=== PATIENT | female | born 1955 | race Hispanic/Latino ===

== ENCOUNTER 2018-08-24 05:48 | Day surgery (SDC) | payer BC ==
[2018-08-22 11:23] VITALS: BP 116/61
[2018-08-22 11:38] LABS: BASOPHILS % (AUTO) 1.1 % (0.0-5.0); EOSINOPHILS % (AUTO) 4.1 % (0.0-8.0); HEMATOCRIT 37.2 % (36-48); LYMPHOCYTES % (AUTO) 33.9 % (21.0-51.0); MEAN CORPUSCULAR HEMOGLOBIN 30.9 pg (27.0-33.0); MEAN CORPUSCULAR HGB CONC 33.9 g/dL (32.0-36.0); MEAN CORPUSCULAR VOLUME 91.2 fL (79-99); MONOCYTES % (AUTO) 8.8 % (3.0-13.0); NEUTROPHILS % (AUTO) 52.1 % (40.0-77.0); NUCLEATED RED BLOOD CELLS 0.1 % (0.0-0.19); PLATELET COUNT (AUTO) 483 K/uL (130-400); RED BLOOD CELL COUNT(AUTO) 4.08 MIL/uL (4.00-5.50); WHITE BLOOD COUNT (AUTO) 6.9 K/uL (4.8-10.8)
[2018-08-22 11:41] LABS: APPEARANCE,URINE Clear (CLEAR); BILIRUBIN,URINE Negative (NEGATIVE); COLOR,URINE Dark Yellow (YELLOW); GLUCOSE, URINE (UA) Negative (NEGATIVE); KETONES,URINE Negative (NEGATIVE); LEUKOCYTE ESTERASE ,URINE Trace (NEGATIVE); NITRATE,URINE Negative (NEGATIVE); OCCULT BLOOD,URINE Negative (NEGATIVE); PROTEIN,URINE Negative (NEGATIVE)
[2018-08-22 11:50] LABS: INR 1.04 (0.85-1.15); PARTIAL THROMBOPLASTIN TIME 30.3 SEC (26.3-35.5); PROTHROMBIN TIME 10.9 SEC (9.6-11.6)
[2018-08-22 11:53] LABS: POTASSIUM 4.1 mmol/L (3.5-5.1)
[2018-08-22 12:14] LABS: BACTERIA,URINE Rare /HPF (None Seen); MUCUS,URINE Few LPF (None Seen); RBC,URINE None Seen /HPF (0-1); SQUAMOUS EPITHELIAL CELL,UR Few /HPF (0-2); WBC,URINE 0-1 /HPF (0-1)
[2018-08-24] VITALS (10 sets, daily range): BP systolic 105–130; BP diastolic 60–69
[~2018-08-24] VITALS: Ht 162.6 cm; Wt 116.0 kg
[~2018-08-24 05:48] MED LIST: ASPI-1181 PO; CYAN-35 PO; FOLI1TAB15 PO; INSU100V12 SQ; LEVO125T95 PO; METO-391 PO; SIMV20TA6 PO; SITA1TAB2 PO
[2018-08-24] MEDS ORDERED: SODIUM CHLORIDE 0.9% 1000ML 1,000 ML IV ONE (06:20)
[2018-08-24] MEDS ORDERED: PREM125 PO (07:00)
[2018-08-24] MEDS ORDERED: PANT40TA PO (07:00)
[2018-08-24] MEDS ORDERED: RANO500T3 PO (07:00)
[2018-08-24] MEDS ORDERED: LIDOCAINE HCL-MPF 2% 5ML VIAL ONE (07:10)
[2018-08-24] MEDS ORDERED: IOHEXOL 350 MG/ML 100ML INFUS..BTL IV ONE (07:11)
[2018-08-24] MEDS ORDERED: IOHEXOL-350 50ML VIAL IV ONE (07:11)
[2018-08-24] MEDS ORDERED: HEPARIN SODIUM 1000UNIT/ML 10ML VIAL ONE (07:12)
[2018-08-24] MEDS ORDERED: DEXTROSE 50%-WATER 50 ML DISP.SYRIN IV PRN (08:00)
[2018-08-24] MEDS ORDERED: GLUCAGON 1MG KIT 1 MG ML IM PRN (08:00)
== END 2018-08-24 14:23 | disposition home or self-care (01) ==
LOC: DAH 05:48
PROVIDERS: ATTEND Internal Medicine Cardiovascular Disease
DX: I25.118 Atherosclerotic heart disease of native coronary artery with other forms of angina pectoris (principal); E11.9 Type 2 diabetes mellitus without complications; E78.5 Hyperlipidemia, unspecified; E03.9 Hypothyroidism, unspecified; E66.9 Obesity, unspecified; Z79.4 Long term (current) use of insulin; Z79.84 Long term (current) use of oral hypoglycemic drugs; Z79.899 Other long term (current) drug therapy; Z90.49 Acquired absence of other specified parts of digestive tract; Z98.890 Other specified postprocedural states; Z90.710 Acquired absence of both cervix and uterus; Z88.8 Allergy status to other drugs, medicaments and biological substances; Z82.49 Family history of ischemic heart disease and other diseases of the circulatory system
CPT/HCPCS: 36415; 71045; 80048; 81001; 82948 ×3; 85025; 85610; 85730; 93005; 93458; A4606; C1894; J1644; J3490; J7030; Q9965; Q9967 ×2

== ENCOUNTER → 2018-10-12 | Outpatient (CLI) | payer BC ==
[~2018-10-12] MED LIST changes: +ERGO2000 PO; +OZEMPIC INJ; +PANT40TA PO; +PREM125 PO; +RANO500T3 PO
== END | disposition home or self-care (01) ==
LOC: RAH 10:10
PROVIDERS: ATTEND Internal Medicine Nephrology
DX: Z12.31 Encounter for screening mammogram for malignant neoplasm of breast (principal); R19.7 Diarrhea, unspecified
CPT/HCPCS: 36415; 77067; 82656; 87507

== ENCOUNTER 2018-10-24 08:34 | Day surgery (SDC) | payer BC ==
[~2018-10-24] VITALS: Ht 162.6 cm; Wt 112.7 kg
[~2018-10-24 08:34] MED LIST changes: +SODIUM CHLORIDE 0.9% 1000ML 1,000 ML IV ONE
[2018-10-24 10:15] VITALS: BP 112/58
[2018-10-24] MEDS ORDERED: PROPOFOL 10 MG/ML 20ML VIAL IV ONE (11:29)
[2018-10-24] MEDS ORDERED: LIDOCAINE HCL 2% 20ML ONE (11:29)
[2018-10-24 11:37] VITALS: BP 94/76
[2018-10-24 11:42] VITALS: BP 118/66
[2018-10-24 11:47] VITALS: BP 115/68
== END 2018-10-24 12:05 | disposition home or self-care (01) ==
LOC: ENDO 08:34 → DAH 08:34 → ENDO 12:05
PROVIDERS: ATTEND Internal Medicine
DX: K44.9 Diaphragmatic hernia without obstruction or gangrene (principal); K31.89 Other diseases of stomach and duodenum; E78.5 Hyperlipidemia, unspecified; E03.9 Hypothyroidism, unspecified; E11.9 Type 2 diabetes mellitus without complications; Z79.4 Long term (current) use of insulin; Z79.899 Other long term (current) drug therapy; Z90.710 Acquired absence of both cervix and uterus; Z98.890 Other specified postprocedural states; Z68.41 Body mass index [BMI] 40.0-44.9, adult; E03.2 Hypothyroidism due to medicaments and other exogenous substances; I25.10 Atherosclerotic heart disease of native coronary artery without angina pectoris
CPT/HCPCS: 43239; 82948 ×2; A4606; J2704; J3490; J7030

== ENCOUNTER → 2018-11-03 | Outpatient (CLI) | payer BC ==
[~2018-11-03] MED LIST changes: -SODIUM CHLORIDE 0.9% 1000ML 1,000 ML IV ONE
== END | disposition home or self-care (01) ==
LOC: RAH 07:49
PROVIDERS: ATTEND Internal Medicine
DX: R10.12 Left upper quadrant pain (principal); R14.0 Abdominal distension (gaseous); K44.9 Diaphragmatic hernia without obstruction or gangrene; K59.00 Constipation, unspecified
CPT/HCPCS: 78264; A9541

== ENCOUNTER → 2019-01-14 | Outpatient (CLI) | payer BC ==
[2019-01-14 10:13] LABS: BASOPHILS % (AUTO) 0.1 % (0.0-5.0); EOSINOPHILS % (AUTO) 3.7 % (0.0-8.0); HEMATOCRIT 38.3 % (36-48); LYMPHOCYTES % (AUTO) 40.8 % (21.0-51.0); MEAN CORPUSCULAR HEMOGLOBIN 30.2 pg (27.0-33.0); MEAN CORPUSCULAR HGB CONC 33.2 g/dL (32.0-36.0); MEAN CORPUSCULAR VOLUME 91.1 fL (79-99); MONOCYTES % (AUTO) 7.8 % (3.0-13.0); NEUTROPHILS % (AUTO) 47.6 % (40.0-77.0); PLATELET COUNT (AUTO) 471 K/uL (130-400); RED BLOOD CELL COUNT(AUTO) 4.21 MIL/uL (4.00-5.50); RED CELL DISTRIBUTION WIDTH 14.1 % (11.0-15.5); WHITE BLOOD COUNT (AUTO) 8.1 K/uL (4.8-10.8)
[2019-01-14 10:33] LABS: ALBUMIN 3.2 g/dL (3.5-5.0); BILIRUBIN,TOTAL 0.3 mg/dL (0.2-1.0); CREATININE 1.1 mg/dL (0.5-1.5); POTASSIUM 4.2 mmol/L (3.5-5.1); TOTAL PROTEIN, SERUM 7.5 g/dL (6.0-8.3)
== END | disposition home or self-care (01) ==
LOC: LAB 09:30
PROVIDERS: ATTEND Internal Medicine Gastroenterology
DX: R10.12 Left upper quadrant pain (principal); R11.0 Nausea
CPT/HCPCS: 36415; 80053; 82150; 83690; 85025

== ENCOUNTER → 2019-01-24 | Outpatient (CLI) | payer BC ==
[~2019-01-24] MED LIST changes: +IOHEXOL-350 75 ML VIAL IV ONE
== END | disposition home or self-care (01) ==
LOC: RAH 10:03
PROVIDERS: ATTEND Internal Medicine Gastroenterology
DX: R10.12 Left upper quadrant pain (principal); R11.0 Nausea
CPT/HCPCS: 74170; Q9967

== ENCOUNTER 2023-03-15 05:50 | Observation (INO) | payer BC, MEDICARE ==
[2023-03-13 11:37] LABS: APPEARANCE,URINE CLEAR (CLEAR); BILIRUBIN,URINE NEGATIVE (NEGATIVE); COLOR,URINE LIGHT-YELLOW (YELLOW); GLUCOSE, URINE (UA) NEGATIVE (NEGATIVE); KETONES,URINE NEGATIVE (NEGATIVE); LEUKOCYTE ESTERASE ,URINE NEGATIVE Leu/uL (NEGATIVE); NITRATE,URINE NEGATIVE (NEGATIVE); OCCULT BLOOD,URINE NEGATIVE (NEGATIVE); PH,URINE 5.5 (5.0-8.0); PROTEIN,URINE NEGATIVE (NEGATIVE); UROBILINOGEN,URINE 0.2 mg/dL (0.2-1.0)
[2023-03-13 11:50] LABS: ALBUMIN 3.6 g/dL (3.5-5.0); CRP QUANTITATIVE < 2.00 mg/L (0.00-9.0)
[2023-03-13 11:51] LABS: INR 1.02 (0.85-1.15); PROTHROMBIN TIME 11.1 SEC (9.6-11.6)
[2023-03-13 11:52] LABS: PARTIAL THROMBOPLASTIN TIME 31.3 SEC (26.3-35.5)
[2023-03-13 13:02] VITALS: BP 123/69
[~2023-03-15] VITALS: Ht 162.6 cm; Wt 102.0 kg
[2023-03-15] VITALS (27 sets, daily range): BP systolic 116–151; BP diastolic 51–78
[~2023-03-15 05:50] MED LIST changes: +AMLO5TAB4 PO; -ASPI-1181 PO; +ASPI-1443 PO; +INSU100I35 SQ; -INSU100V12 SQ; -IOHEXOL-350 75 ML VIAL IV ONE; +MAGN100T5 PO; +NITR0.4T50 SL; +NITR1PAT68 TD; -OZEMPIC INJ; +PYRI-12 PO; -RANO500T3 PO; +SEMA7TAB2 PO; +SIMV-43 PO; -SIMV20TA6 PO; -SITA1TAB2 PO
[2023-03-15] MEDS ORDERED: CEFAZOLIN SODIUM 1 GM VIAL IVPB PRN (06:00)
[2023-03-15] MEDS ORDERED: 0.9%NACL 1000ML 1,000 ML IV ONE (06:24)
[2023-03-15] MEDS ORDERED: KETOROLAC 30MG VIAL (30MG/ML) ONE (06:37)
[2023-03-15] MEDS ORDERED: BUPIVACAINE/PF 0.5% 30ML VIAL ONE (06:38)
[2023-03-15] MEDS ORDERED: SUCCINYLCHOLINE 200MG/10ML SYR ONE (07:04)
[2023-03-15] MEDS ORDERED: LIDOCAINE PF 100MG/5ML (2%) SYRINGE 5ML ONE (07:04)
[2023-03-15] MEDS ORDERED: PROPOFOL 10 MG/ML 20ML VIAL IV ONE (07:04)
[2023-03-15] MEDS ORDERED: ROCURONIUM 10MG/1ML SYR 10 MG/ML ML ONE (07:05)
[2023-03-15] MEDS ORDERED: FENTANYL CITRATE PF 50 MCG/1 ML 2ML VIAL ONE ×2 (07:05→09:23)
[2023-03-15] MEDS ORDERED: MIDAZOLAM HCL 1 MG/ML 2ML VIAL ONE (07:05)
[2023-03-15] MEDS ORDERED: TRANEXAMIC ACID 1000MG/10ML ONE (07:26)
[2023-03-15] MEDS ORDERED: TRANEXAMIC ACID 1000MG/10ML IV ONE (08:42)
[2023-03-15] MEDS ORDERED: NEOSTIGMINE 5MG/5ML SYR IV ONE (08:56)
[2023-03-15] MEDS ORDERED: GLYCOPYRROLATE 1 MG/5 ML SYRINGE ONE (08:56)
[2023-03-15] MEDS ORDERED: ONDANSETRON 4MG INJ IVP PRN (09:30)
[2023-03-15] MEDS ORDERED: POTASSIUM CHLORIDE 10% ELIXIR 20 MEQ/15 ML UDCUP PO PRN (09:30)
[2023-03-15] MEDS ORDERED: FERROUS FUMARATE 324 MG TABLET PO PRN (09:30)
[2023-03-15] MEDS ORDERED: CALCIUM CARB 500MG PO PRN (09:30)
[2023-03-15] MEDS ORDERED: DiphenhydrAMINE HCL 50 MG/ML VIAL IVP PRN (09:30)
[2023-03-15] MEDS ORDERED: KETOROLAC 15MG/ML VIAL (15MG/ML) IV PRN (09:30)
[2023-03-15] MEDS ORDERED: POTASSIUM CHLORIDE 20MEQ/100ML 100 ML IV PRN (09:30)
[2023-03-15] MEDS ORDERED: KCL 20 MEQ ERTAB PO PRN (09:30)
[2023-03-15] MEDS ORDERED: MEPERIDINE-PF 25 MG/ML SYG ONE (09:52)
[2023-03-15] MEDS ORDERED: ONDANSETRON 4MG INJ ONE (09:57)
[2023-03-15] MEDS ORDERED: METOCLOPRAMIDE 10 MG/2 ML VIAL ONE (09:59)
[2023-03-15] MEDS: 0.9%NACL 1000ML 1,000 ML IV SCH ×2 (11:13→16:07)
[2023-03-15] MEDS: ACETAMINOPHEN 500 MG TABLET PO SCH ×3 (11:13→21:21)
[2023-03-15] MEDS: TRAMADOL HCL 50 MG TABLET PO PRN ×2 (11:13→19:12)
[2023-03-15] MEDS: GABAPENTIN 100 MG CAPSULE PO SCH ×2 (14:00→19:46)
[2023-03-15] MEDS: CEFAZOLIN SODIUM 2 GM VIAL IVPB SCH ×2 (16:06→21:19)
[2023-03-15] MEDS: KETOROLAC 15MG/ML VIAL (15MG/ML) IV PRN (16:12)
[2023-03-15] MEDS: DOCUSATE SODIUM 100 MG CAP PO SCH (19:46)
[2023-03-15] MEDS: CYCLOBENZAPRINE HCL 10 MG TABLET PO PRN (21:19)
[2023-03-16] MEDS: ACETAMINOPHEN 500 MG TABLET PO SCH ×4 (03:27→20:05)
[2023-03-16] MEDS: KETOROLAC 15MG/ML VIAL (15MG/ML) IV PRN ×3 (03:27→21:44)
[2023-03-16 03:31] VITALS: BP 123/64
[2023-03-16 05:09] LABS: HEMATOCRIT 33.7 % (36-48); MEAN CORPUSCULAR HEMOGLOBIN 31.1 pg (27.0-33.0); MEAN CORPUSCULAR HGB CONC 33.5 g/dL (32.0-36.0); MEAN CORPUSCULAR VOLUME 92.8 fL (79-99); RED BLOOD CELL COUNT(AUTO) 3.63 MIL/uL (4.00-5.50); RED CELL DISTRIBUTION WIDTH 14.7 % (11.0-15.5); WHITE BLOOD COUNT (AUTO) 10.7 K/uL (4.8-10.8)
[2023-03-16 05:14] LABS: CREATININE 1.1 mg/dL (0.5-1.5); POTASSIUM 3.9 mmol/L (3.5-5.1)
[2023-03-16] MEDS: 0.9%NACL 1000ML 1,000 ML IV SCH (05:15)
[2023-03-16 08:00] VITALS: BP 130/69
[2023-03-16] MEDS ORDERED: LIDOCAINE HCL-MPF 2% 10ML AMP IJ ONE (08:29)
[2023-03-16] MEDS ORDERED: ROPIVACAINE 0.5% 5MG/ML 30ML IJ ONE (08:29)
[2023-03-16] MEDS: GABAPENTIN 100 MG CAPSULE PO SCH ×3 (09:05→20:04)
[2023-03-16] MEDS: DOCUSATE SODIUM 100 MG CAP PO SCH ×2 (09:05→20:04)
[2023-03-16] MEDS: ASPIRIN 325MG TAB PO SCH (09:07)
[2023-03-16] MEDS: POLYETHYLENE GLYCOL 3350 17 GM POWD.PACK PO SCH (09:07)
[2023-03-16 11:49] VITALS: BP 124/53
[2023-03-16] MEDS: CYCLOBENZAPRINE HCL 10 MG TABLET PO PRN ×2 (12:41→21:49)
[2023-03-16] MEDS: TRAMADOL HCL 50 MG TABLET PO PRN (12:41)
[2023-03-16 16:00] VITALS: BP 142/74
[2023-03-16 19:58] VITALS: BP 141/70
[2023-03-16 23:26] VITALS: BP 129/49
[2023-03-17] MEDS: ACETAMINOPHEN 500 MG TABLET PO SCH ×2 (02:34→07:20)
[2023-03-17 03:52] VITALS: BP 132/72
[2023-03-17] MEDS: GABAPENTIN 100 MG CAPSULE PO SCH (07:18)
[2023-03-17] MEDS: DOCUSATE SODIUM 100 MG CAP PO SCH (07:19)
[2023-03-17] MEDS: ASPIRIN 325MG TAB PO SCH (07:19)
[2023-03-17] MEDS: POLYETHYLENE GLYCOL 3350 17 GM POWD.PACK PO SCH (07:19)
[2023-03-17] MEDS: TRAMADOL HCL 50 MG TABLET PO PRN (07:21)
[2023-03-17 07:41] VITALS: BP 145/75
[2023-03-17 11:24] VITALS: BP 145/94
[2023-03-17] MEDS ORDERED: GABA100C PO (11:53)
[2023-03-17] MEDS ORDERED: TRAM50TA4 PO (11:53)
[2023-03-17] MEDS ORDERED: CYCL-309 PO (11:53)
[2023-03-17] MEDS ORDERED: DOCU-116 PO (11:53)
[2023-03-17] MEDS ORDERED: ASPI-1026 PO (11:54)
[2023-03-17] MEDS ORDERED: ACET-2743 PO (11:54)
[2023-03-18] MEDS ORDERED: BISACODYL 10 MG SUPP.RECT RC PRN (09:30)
== END 2023-03-17 13:30 | disposition home health service (06) ==
LOC: DAH 05:50 → DAHIP 05:51 → 4BH 10:45
PROVIDERS: ADMIT Student in an Organized Health Care Education/Training Program; ATTEND Student in an Organized Health Care Education/Training Program
DX: M17.11 Unilateral primary osteoarthritis, right knee (principal); Z20.822 Contact with and (suspected) exposure to COVID-19; E78.5 Hyperlipidemia, unspecified; D62 Acute posthemorrhagic anemia; E11.9 Type 2 diabetes mellitus without complications; E03.9 Hypothyroidism, unspecified; K21.9 Gastro-esophageal reflux disease without esophagitis; E66.9 Obesity, unspecified; Z79.899 Other long term (current) drug therapy
CPT/HCPCS: 82040; 85610; 85730; 87088; 84134; 86140; 87426; 81003; 36415 ×2; 87641; 64447; 27447; 96365; 96366; 96375; 82948 ×2; 73560; 97161; 97039 ×5; 96376; 80048; 85027; 97116 ×3; 97530; G0378 ×51; J7030 ×2; A4215; A4649 ×5; J3010 ×2; J0690 ×3; J3490 ×5; J0330; J2710; J2001; J2250; J2704; J2405; J1885 ×5; J2175; J2765; C1713 ×2; G0168; C1776 ×2; A6255; J2795

== ENCOUNTER → 2023-07-05 | Outpatient (CLI) | payer BC, MEDICARE ==
[~2023-07-05] MED LIST changes: +ACET-2743 PO; +ASPI-1026 PO; +CYCL-309 PO; +DOCU-116 PO; +GABA100C PO; +TRAM50TA4 PO
== END | disposition home or self-care (01) ==
LOC: RAH 09:52
PROVIDERS: ATTEND Internal Medicine
DX: Z12.31 Encounter for screening mammogram for malignant neoplasm of breast (principal)
CPT/HCPCS: 77067

== ENCOUNTER → 2024-07-29 | Outpatient (CLI) | payer BC | END | disposition home or self-care (01) | LOC: RAH 13:14 | PROVIDERS: ATTEND Student in an Organized Health Care Education/Training Program | DX: M25.461 Effusion, right knee (principal); M25.861 Other specified joint disorders, right knee; Z96.651 Presence of right artificial knee joint | CPT/HCPCS: 73700 ==

== ENCOUNTER 2024-09-20 05:45 | Day surgery (SDC) | payer BC, MEDICARE ==
[2024-09-18 13:12] LABS: INR 1.07 (0.85-1.15); PROTHROMBIN TIME 11.5 SEC (9.6-11.6)
[2024-09-18 13:13] LABS: PARTIAL THROMBOPLASTIN TIME 28.8 SEC (26.3-35.5)
[2024-09-18 13:47] VITALS: BP 118/70; PULSE 65; RESP 18; TEMP 97.4
[2024-09-20] VITALS (13 sets, daily range): BP systolic 105–129; BP diastolic 51–66; PULSE 57–68; RESP 14–18; TEMP 97–97.3
[~2024-09-20] VITALS: Ht 160 cm; Wt 101.2 kg
[2024-09-20] MEDS: ceFAZolin SODIUM 2 GM VIAL ONE (06:07)
[2024-09-20] MEDS ORDERED: acetaMINOPHEN 100 ML ONE (06:42)
[2024-09-20] MEDS ORDERED: FAMOTIDINE 20MG VIAL IV ONE (06:42)
[2024-09-20] MEDS ORDERED: ketaMINE 50MG/ML SYRINGE 50 MG/ML DISP.SYRIN ONE (06:43)
[2024-09-20] MEDS ORDERED: LIDOCAINE PF 100MG/5ML (2%) SYRINGE 5ML ONE (06:50)
[2024-09-20] MEDS ORDERED: rocuRONium bROMide 10MG/1ML 5ML VL ONE (06:51)
[2024-09-20] MEDS ORDERED: proPOFol 10 MG/ML 20ML VIAL IV ONE (06:51)
[2024-09-20] MEDS ORDERED: FENTanyl CITRate PF 50 MCG/1 ML 2ML VIAL ONE (06:51)
[2024-09-20] MEDS ORDERED: ondanSETRON 4MG INJ ONE (07:09)
[2024-09-20] MEDS ORDERED: dexaMETHasone SOD PHOSPHATE 10MG/ML 1ML VIAL ONE (07:09)
[2024-09-20] MEDS ORDERED: TRAM100C3 PO (07:14)
[2024-09-20] MEDS: ceFAZolin SODIUM 2 GM VIAL IVPB SCH (07:20)
[2024-09-20] MEDS ORDERED: ePHEDrine SULFate 50 MG/ML AMPULE ONE (07:27)
[2024-09-20] MEDS: BUPIvacaine/PF 0.25% 30ML VIAL IJ ONE (07:48)
[2024-09-20] MEDS ORDERED: GLYCOPYRROLATE 0.2 MG/ML 5 ML VIAL ONE (08:20)
[2024-09-20] MEDS ORDERED: NEOSTIGMINE METHYLSULFATE 1MG/ML IV ONE (08:20)
[2024-09-20] MEDS: 0.9%NACL 1000ML 1,000 ML IV ONE (08:57)
--- NOTE | 2024-09-20 10:10 | NUR ---
PENDING FOR PT TO ARRIVE AND TO GAIT TRAINING WITH WALKER.
--- NOTE | 2024-09-20 13:56 | OP ---
Operative Note: DATE OF PROCEDURE: 09/20/24 SURGEON: LELA PEREZ MD FUSING MACHINE OPERATOR: Jose Maria Hetlon ANESTHESIA: General ANESTHESIOLOGIST/AUTOMOTIVE BUYER: Lakeshia Sepulveda PREOPERATIVE DIAGNOSIS: Right painful total knee with synovitis POSTOPERATIVE DIAGNOSIS: Right painful total knee with synovitis PROCEDURE: Right knee arthroscopic partial synovectomy ESTIMATED BLOOD LOSS: 2 cc FINDINGS: On inserting the arthroscope there was notable synovitic tissue present within the notch inferior to the patella. Slight meniscal scar present along the anteromedial portion of the knee. The patellar component was able to be identified after shaving away some of the hypertrophic synovium. There was also hypertrophic synovium proximal to the patella over the quad tendon. We further resected some of the synovium in the suprapatellar pouch as well as over the anterior lateral portion of the knee. INDICATIONS: 69-year-old female with a history of right total knee proximal one year ago with development of pain and clicking type sensation within the right knee. Patient presented to clinic for discussion of this. After discussion of the risks, benefits, and alternatives, she voluntarily agreed to undergo the aforementioned procedure. DESCRIPTION OF PROCEDURE: Patient was properly identified in the preoperative holding area. Surgical site marking was verified and surgery consent reviewed. The patient was then taken to the operating room and placed in supine position on the OR table. After induction of general anesthesia, preoperative antibiotics were given, all bony prominences were well-padded, and a well padded tourniquet was applied but not inflated at this time. The right lower extremity was then prepped and draped in usual sterile fashion. Surgical time out was done verifying correct surgery, side, site, and location to be performed. We then began the procedure by making a standard anterolateral portal with an 11 blade and inserted our arthroscope through here. We made our anterior medial portal under direct visualization using spinal needle for localization. We then inserted our probe and performed our diagnostic arthroscopy with the above mentioned findings. At this point we inserted shaver device and began performing a partial synove ctomy of the anterior joint of the joint line and circumferentially around the patella. We then inserted the cautery device to assist with the achieve hemostasis. Once we were happy with our debridement, we then thoroughly irrigated out the wound with normal saline. We removed as much fluid from the knee as possible. We then injected local anesthetic within the capsule of the j oint as well as around the portal sites. Our portal sites were then repaired using 3-0 nylon in simple fashion. Sterile dressing was then applied consisting of Xeroform, 4 x 4's, ABD, cast padding, and an He wrap. The patient was then awakened from anesthesia and taken to recovery room in stable condition. LELA PEREZ MD Sep 20, 2024 13:56
== END 2024-09-20 11:05 | disposition home or self-care (01) ==
LOC: DAH 05:45
PROVIDERS: ATTEND Student in an Organized Health Care Education/Training Program
DX: M65.961 Unspecified synovitis and tenosynovitis, right lower leg (principal); T84.84XA Pain due to internal orthopedic prosthetic devices, implants and grafts, initial encounter; M67.261 Synovial hypertrophy, not elsewhere classified, right lower leg; I12.9 Hypertensive chronic kidney disease with stage 1 through stage 4 chronic kidney disease, or unspecified chronic kidney disease; E11.22 Type 2 diabetes mellitus with diabetic chronic kidney disease; I25.10 Atherosclerotic heart disease of native coronary artery without angina pectoris; E78.5 Hyperlipidemia, unspecified; E03.9 Hypothyroidism, unspecified; E66.9 Obesity, unspecified; N18.30 Chronic kidney disease, stage 3 unspecified; Z79.01 Long term (current) use of anticoagulants; Z79.899 Other long term (current) drug therapy; Z88.5 Allergy status to narcotic agent; Z79.4 Long term (current) use of insulin; Z96.651 Presence of right artificial knee joint; Z90.49 Acquired absence of other specified parts of digestive tract; Z90.710 Acquired absence of both cervix and uterus; Z98.42 Cataract extraction status, left eye; Z98.41 Cataract extraction status, right eye; Y83.8 Other surgical procedures as the cause of abnormal reaction of the patient, or of later complication, without mention of misadventure at the time of the procedure; Y92.89 Other specified places as the place of occurrence of the external cause
CPT/HCPCS: 85610; 85730; 36415; 29875; 97161; 82948; 97116; A4663; J3490 ×5; J3010; J1100; J7030; J0665; J2003; J2704; J2405; J2710; J0690; A6223; A4649 ×2; A4930; A5120; A4215; A4223; A4222; A4221; A6450